=== PATIENT | male | born 1965 | race Caucasian/White ===

== ENCOUNTER 2016-10-28 12:14 | Emergency (ER) | payer MEDICAID ==
[~2016-10-28] VITALS: Ht 172.7 cm; Wt 74.8 kg
--- NOTE | 2016-10-28 12:15 | NUR ---
PT BIBA TO BED 2.
--- NOTE | 2016-10-28 12:17 | NUR ---
51M BIBA FROM [facility] C/O "ITCHING ALL OVER " AND BL UPPER ABDOMEN PAIN AFTER SMOKING MARIJUANA X 1 HR AGO; PT C/O CRAMPING BL UPPER ABDOMINAL PAIN, NON-RADIATING, 7/10 AT THIS TIME; ABDOMEN SOFT, NON-TENDER, ACTIVE BOWEL SOUNDS X 4 QUADRANTS; PT STATES VOMITTED PRIOR TO ARRIVAL, BUT DENIES N/V/D AT THIS TIME; A&OX4, BL LUNG SOUNDS CLEAR, RR EVEN/UNLABORED, SKIN IS WARM/DRY/INTACT AT THIS TIME; PT PLACED ON MONITOR, RESTING IN BED W/ HOB ELEVATED AND IN LOWEST POSITION; POSITIONED FOR COMFORT; ER MD MADE AWARE OF STATUS. WILL CONTINUE TO MONITOR.
--- NOTE | 2016-10-28 12:19 | NUR ---
WARM BLANKET PROVIDED TO PT FOR COMFORT.
[2016-10-28] MEDS ORDERED: FAMOTIDINE 20 MG/2 ML VIAL IVP ONE (12:20)
[2016-10-28 12:22] VITALS: BP 103/71
[2016-10-28] MEDS ORDERED: BELLADONNA/PHENOBARBITAL 5 ML ORASYR PO ONE (12:25)
[2016-10-28] MEDS ORDERED: ALUMINUM HYD/MAG/SIMETHICONE 30 ML UDC PO ONE (12:25)
[2016-10-28] MEDS ORDERED: LIDOCAINE VISCOUS 2% 20 ML UDC PO ONE (12:25)
--- NOTE | 2016-10-28 12:46 | NUR ---
LAB AT BEDSIDE.
--- NOTE | 2016-10-28 13:32 | NUR ---
Patient appears to be resting comfortably in bed. Vital Signs within normal limits. Respirations even and unlabored. FAMILY AT BEDSIDE. WILL CONTINUE TO MONITOR.
--- NOTE | 2016-10-28 15:15 | NUR ---
IV removed, catheter intact and site benign. Applied folded 4x4 gauze and tape to stop bleeding. PT TOLERATED PROCEDURE WELL.
[2016-10-28 15:21] VITALS: BP 99/70
--- NOTE | 2016-10-28 15:21 | NUR ---
Patient discharged with v/s stable. Written and verbal after care instructions given and explained. Patient alert, oriented and verbalized understanding of instructions. Ambulatory with steady gait. All questions addressed prior to discharge. ID band removed. Patient advised to follow up with PMD. Rx of RANITIDINE HYDROCHLORIDE 150MG given. Patient educated on indication of medication including possible reaction and side effects. Opportunity to ask questions provided and answered.
== END 2016-10-28 15:21 | disposition home or self-care (01) ==
LOC: MED 12:14
DX: R10.13 Epigastric pain (principal); T40.7X5A Adverse effect of cannabis (derivatives), initial encounter; Z87.448 Personal history of other diseases of urinary system
CPT/HCPCS: 36415; 71010; 80053; 80305; 81001; 82150; 82553; 83690; 83880; 84484; 85025; 85610; 85730; 93005; 96374; 99285; J3490; Q0092